=== PATIENT | female | born 1955 | race Caucasian/White ===

== ENCOUNTER 2019-06-22 14:15 | Emergency (ER) | payer MEDICAID ==
[2019-06-22] MEDS ORDERED: NORMAL SALINE 1000 ML 1,000 ML IV ONE (14:29)
--- NOTE | 2019-06-22 14:29 | ER Document Report ---
ED Medical Screen (RME) - General Stated Complaint: DIARRHEA TRAVEL OUTSIDE OF THE [place] IN LAST 30 DAYS: No - HPI Notes: 06/22/19 14:28 Patient is a 63-year-old female with stage IV breast cancer who finished her chemotherapy 10 days ago presents complaining of having diarrhea that started about the same time and has been present since. Patient describes the diarrhea as watery. She does feel weak. Denies drug allergies. No fever, chest pain, shortness of breath. No vomiting. I have treated and performed a rapid initial assessment of this patient. A comprehensive ED assessment and evaluation of the patient, analysis of test results and completion of medical decision making process will be conducted by additional ED providers. PHYSICAL EXAMINATION: GENERAL: Well-appearing, well-nourished and in no acute distress. A&Ox4. Answers questions appropriately.
[2019-06-22 15:50] LABS: ABSOLUTE LYMPHOCYTES (AUTO) 0.5 10^3/uL (0.5-4.7); ABSOLUTE MONOCYTES (AUTO) 0.7 10^3/uL (0.1-1.4); ABSOLUTE NEUT (AUTO) 2.9 10^3/uL (1.7-8.2); BASOPHILS % (AUTO) 0.1 % (0-2); EOSINOPHILS % (AUTO) 0.1 % (0-6); HEMATOCRIT 35.2 % (36.0-47.0); HEMOGLOBIN 11.9 g/dL (12.0-15.5); LYMPHOCYTES % (AUTO) 12.4 % (13-45); MEAN CORPUSCULAR HEMOGLOBIN 29.6 pg (27.0-33.4); MEAN CORPUSCULAR HGB CONC 33.9 g/dL (32.0-36.0); MEAN CORPUSCULAR VOLUME 87 fl (80-97); MONOCYTES % (AUTO) 17.1 % (3-13); PLATELET COUNT 209 10^3/uL (150-450); RED BLOOD COUNT 4.03 10^6/uL (3.72-5.28); RED CELL DISTRIBUTION WIDTH 16.2 % (11.5-14.0); SEGMENTED NEUTROPHILS % (AUTO) 70.3 % (42-78); TOTAL CELLS COUNTED % (AUTO) 100 %; WHITE BLOOD COUNT 4.1 10^3/uL (4.0-10.5)
[2019-06-22 16:04] LABS: ALBUMIN 2.7 g/dL (3.5-5.0); ALKALINE PHOSPHATASE 61 U/L (38-126); ANION GAP 7 (5-19); ASPARTATE AMINO TRANSFERASE 20 U/L (14-36); BILIRUBIN,TOTAL 0.8 mg/dL (0.2-1.3); BLOOD UREA NITROGEN 13 mg/dL (7-20); CALCIUM 8.4 mg/dL (8.4-10.2); CARBON DIOXIDE 34 mmol/L (22-30); CHLORIDE 87 mmol/L (98-107); GLUCOSE 91 mg/dL (75-110); TOTAL PROTEIN 4.9 g/dL (6.3-8.2)
[2019-06-22 16:13] LABS: POTASSIUM 2.4 mmol/L (3.6-5.0)
[2019-06-22] MEDS ORDERED: POTASSIUM CHLORIDE 10 MEQ TABLET.ER PO ONE ×2 (16:38→23:19)
[2019-06-22] MEDS ORDERED: POTASSI CL 20 MEQ/50 ML RIDER 20 MEQ/50 ML RTUPB IV ONE (16:38)
--- NOTE | 2019-06-22 18:44 | ER Document Report ---
ED General - General Chief Complaint: Diarrhea Stated Complaint: DIARRHEA Time Seen by Provider: 06/22/19 18:29 Primary Care Provider: FERNIE PITT DO [Primary Care Provider] - Follow up as needed Mode of Arrival: Stretcher Information source: Patient Notes: Jered JUNG Patient is a 63-year-old female with stage IV breast cancer who finished her chemotherapy 10 days ago presents complaining of having diarrhea that started about the same time and has been present since. Patient describes the diarrhea as watery. She does feel weak. Denies drug allergies. No fever, chest pain, shortness of breath. No vomiting. Patient sees Dr. Barry in [facility] as a oncologist. Patient called her neighbor because she felt poorly for the last several days. She has been taken Xeloda capectabine for her breast cancer and side effects include stomach i ssues. Patient is felt very weak for the last 2 to 3 days as well. She is only taken in one third of a bottle of her 8 ounces of water today. TRAVEL OUTSIDE OF THE [place] IN LAST 30 DAYS: No - HPI Onset: Just prior to arrival - Related Data Allergies/Adverse Reactions: No Known Allergies Allergy (Verified 06/22/19 14:35) Home Medications: Acetaminophen. Capecitabine. Carvedilol. Claritin. Diphenyhydramine. Gabapentin. Losartan. Prochlorperazine Past Medical History - General Information source: Patient - Social History Smoking Status: Never Smoker Cigarette use (# per day): No Chew tobacco use (# tins/day): No Smoking Education Provided: No Frequency of alcohol use: Occasional Drug Abuse: None Lives with: Alone Family History: Malignancy, Other - Status post bilateral mastectomy with edema of her right upper arm residual Patient has suicidal ideation: No Patient has homicidal ideation: No Review of Systems - Review of Systems Constitutional: See HPI, Malaise, Weakness, Weight loss, Recent illness EENT: See HPI, Other - Dry mouth and lips Cardiovascular: No symptoms reported Respiratory: No symptoms reported Gastrointestinal: See HPI, Diarrhea, Nausea, Poor appetite, Poor fluid intake Genitourinary: No symptoms reported Female Genitourinary: No symptoms reported Musculoskeletal: No symptoms reported Skin: No symptoms reported Hematologic/Lymphatic: No symptoms reported Neurological/Psychological: No symptoms reported Physical Exam - Vital signs Vitals: Temp Pulse Resp BP Pulse Ox 98.1 F 82 18 103/55 L 98 06/22/19 14:28 06/22/19 14:28 06/22/19 14:28 06/22/19 14:28 06/22/19 14:28 Interpretation: Hypotensive - General General appearance: Alert In distress: Mild - HEENT Head: Normocephalic Eyes: Normal Conjunctiva: Normal Cornea: Normal Extraocular movements intact: Yes Eyelashes: Normal Pupils: PERRL Mouth/Lips: Normal Mucous membranes: Dry Pharynx: Other - Dry oral mucous membranes and tongue and lips Neck: Normal - Respiratory Respiratory status: No respiratory distress Chest status: Nontender Breath sounds: Normal Chest palpation: Normal - Cardiovascular Rhythm: Regular Murmur: No Friction rub: No Megan's crunch: No - Abdominal Inspection: Normal Distension: No distension Bowel sounds: Hyperactive Tenderness: Nontender Organomegaly: No organomegaly - Back Back: Normal - Extremities General upper extremity: Edema - Right upper extremity only left upper extremity within normal limits General lower extremity: Normal inspection - Neurological Neuro grossly intact: Yes Cognition: Normal Orientation: AAOx4 [place] Coma Scale Eye Opening: Spontaneous Teresa Coma Scale Verbal: Oriented Speech: Normal Cranial nerves: Normal Motor strength normal: LUE, RUE, LLE, RLE - Psychological Associated symptoms: Normal affect - Skin Skin Temperature: Warm Skin Moisture: Dry Course - Vital Signs Vital signs: Temp Pulse Resp BP Pulse Ox 98.1 F 82 18 103/55 L 98 06/22/19 14:28 06/22/19 14:28 06/22/19 14:28 06/22/19 14:28 06/22/19 14:28 - Laboratory Result Diagrams: 06/22/19 15:19 06/22/19 15:19 Laboratory results interpreted by me: 06/22/19 06/22/19 15:19 15:19 Hgb 11.9 L Hct 35.2 L RDW 16.2 H Lymph % (Auto) 12.4 L Rooks % (Auto) 17.1 H Sodium 128.3 L Potassium 2.4 L* Chloride 87 L Carbon Dioxide 34 H Total Protein 4.9 L Albumin 2.7 L - Diagnostic Test Radiology reviewed: Reports reviewed - EKG Interpretation by Tx EKG shows normal: Sinus rhythm Rate: Normal [place]/QRS: RBBB Critical Care Note - Critical Care Note Total time excluding time spent on procedures (mins): 90 Comments: I discussed this case with Jenn Teresa at [phone] @ [phone] and she advised she will discuss this with Dr. Wilner Arce when he arrives Discharge - Discharge Clinical Impression: Dehydration Condition: Fair Disposition: ADMITTED INPATIENT Admitting Provider: Claude (Hospitalist) Unit Admitted: Medical Floor Referrals: FERNIE PITT DO [Primary Care Provider] - Follow up as needed
[2019-06-22 19:11] LABS: C DIFFICILE GDH NEGATIVE (NEGATIVE)
--- NOTE | 2019-06-22 20:07 | RADIOLOGY REPORT (SQ) ---
EXAM DESCRIPTION: KUB/ABDOMEN (SINGLE VIEW) COMPLETED DATE/TIME: 06/22/2019 7:18 pm REASON FOR STUDY: weakness diarrhea COMPARISON: None. NUMBER OF VIEWS: One view. TECHNIQUE: Supine radiographic image of the abdomen acquired. LIMITATIONS: None. FINDINGS: BOWEL GAS PATTERN: Scattered non-dilated small bowel loops. No obstructive pattern. CALCIFICATIONS: No suspicious calcifications. SOFT TISSUES: No gross mass or suggestion of organomegaly. HARDWARE: None in the abdomen.. BONES: No acute fracture. No worrisome bone lesions. OTHER: No other significant finding. IMPRESSION: NON-SPECIFIC BOWEL GAS PATTERN WITHOUT EVIDENCE FOR OBSTRUCTION. TECHNICAL DOCUMENTATION: JOB ID: [id number] [id number] 2010 [employer]- All Rights Reserved Reading location - IP/workstation name: [email or web address]
[2019-06-23] MEDS: POTASSI CL 20 MEQ/50 ML RIDER 20 MEQ/50 ML RTUPB IV SCH ×2 (00:03→02:28)
--- NOTE | 2019-06-23 01:10 | EKG REPORT ---
SEVERITY:- ABNORMAL ECG - SINUS RHYTHM RIGHT BUNDLE BRANCH BLOCK PROBABLE LEFT VENTRICULAR HYPERTROPHY : Confirmed by: Savanah Sullivan MD 23-Jun-2019 01:09:43
--- NOTE | 2019-06-23 03:47 | PDOC CONSULTATION ---
Consultation Consult Date: 06/23/19 Attending physician:: CATALINA CAPONE JR Provider Consulted: AMY TONEY Consult reason:: Hypokalemia History of Present Illness Admission Date/PCP: FERNIE PITT DO Patient complains of: Weakness History of Present Illness: PAVAN COLEMAN is a 63 year old female with a past medical history of stage IV breast cancer who finished chemotherapy 10 days ago with subsequent loose stools and diarrhea developing fatigue and weakness she denies fever nausea vomiting or abdominal pain. In the emergency department she is found to have a potassium of 2.4. Imaging is unremarkable. She receives 2 L of normal saline, 80 mEq of potassium IV and p.o. She tolerates p.o. diet and feels improved. Past Surgical History Past Surgical History: Reports: Mastectomy Social History Information Source: Patient, [facility], [facility] Records Lives with: Alone Smoking Status: Never Smoker Frequency of Alcohol Use: None Drugs: None - Advance Directive Resuscitation Status: Full Code Family History Family History: Malignancy, Other - Status post bilateral mastectomy with edema of her right upper arm residual Parental Family History Reviewed: Yes Children Family History Reviewed: Yes Sibling(s) Family History Reviewed.: Yes Medication/Allergy Home Medications: Carvedilol [Coreg 6.25 mg Tablet] 6.25 mg PO DAILY 06/22/19 Gabapentin [Neurontin 100 mg Capsule] 300 mg PO Q12 06/22/19 Losartan Potassium [Cozaar 25 mg Tablet] 25 mg PO DAILY 06/22/19 Allergies/Adverse Reactions: No Known Allergies Allergy (Verified 06/22/19 14:35) Review of Systems Constitutional: ABSENT: chills, fever(s), headache(s), weight gain, weight loss Eyes: ABSENT: visual disturbances Ears: ABSENT: hearing changes Cardiovascular: ABSENT: chest pain, dyspnea on exertion, edema, orthropnea, palpitations Respiratory: ABSENT: cough, hemoptysis Gastrointestinal: ABSENT: abdominal pain, constipation, diarrhea, hematemesis, hematochezia, nausea, vomiting Genitourinary: ABSENT: dysuria, hematuria Musculoskeletal: ABSENT: joint swelling Integumentary: ABSENT: rash, wounds Neurological: ABSENT: abnormal gait, abnormal speech, confusion, dizziness, focal weakness, syncope Psychiatric: ABSENT: anxiety, depression, homidical ideation, suicidal ideation Endocrine: ABSENT: cold intolerance, heat intolerance, polydipsia, polyuria Hematologic/Lymphatic: ABSENT: easy bleeding, easy bruising Physical Exam Vital Signs: Temp Pulse Resp BP Pulse Ox 97.8 F 82 23 H 108/62 99 06/23/19 01:02 06/22/19 14:28 06/23/19 01:01 06/23/19 01:00 06/23/19 01:01 Intake & Output 06/21/19 06/22/19 06/23/19 11:59 11:59 11:59 Intake Total 1100 Balance 1100 Weight 88.2 kg General appearance: PRESENT: no acute distress, well-developed, well-nourished Head exam: PRESENT: atraumatic, normocephalic Eye exam: PRESENT: conjunctiva pink, EOMI, PERRLA. ABSENT: scleral icterus Ear exam: PRESENT: normal external ear exam Mouth exam: PRESENT: moist, tongue midline Neck exam: ABSENT: carotid bruit, JVD, lymphadenopathy, thyromegaly Respiratory exam: PRESENT: clear to auscultation vin. ABSENT: rales, rhonchi, wheezes Cardiovascular exam: PRESENT: RRR. ABSENT: diastolic murmur, rubs, systolic murmur Pulses: PRESENT: normal dorsalis pedis pul Vascular exam: PRESENT: normal capillary refill GI/Abdominal exam: PRESENT: normal bowel sounds, soft. ABSENT: distended, guarding, mass, organolmegaly, rebound, tenderness Rectal exam: PRESENT: deferred Extremities exam: PRESENT: full ROM, +1 edema - Right upper extremity and bilateral lower extremity. ABSENT: calf tenderness, clubbing, pedal edema Neurological exam: PRESENT: alert, awake, oriented to person, oriented to place, oriented to time, oriented to situation, CN II-XII grossly intact. ABSENT: motor sensory deficit Psychiatric exam: PRESENT: appropriate affect, normal mood. ABSENT: homicidal ideation, suicidal ideation Skin exam: PRESENT: dry, intact, warm. ABSENT: cyanosis, rash Results Laboratory Results: 06/22/19 15:19 06/22/19 15:19 06/22/19 06/22/19 06/22/19 15:19 15:19 15:19 WBC 4.1 RBC 4.03 Hgb 11.9 L Hct 35.2 L MCV 87 MCH 29.6 MCHC 33.9 RDW 16.2 H Plt Count 209 Seg Neutrophils % 70.3 Sodium 128.3 L Potassium 2.4 L* Chloride 87 L Carbon Dioxide 34 H Anion Gap 7 BUN 13 Creatinine 0.62 Est GFR ( Amer) > 60 Glucose 91 Calcium 8.4 Magnesium 2.1 Total Bilirubin 0.8 AST 20 Alkaline Phosphatase 61 Total Protein 4.9 L Albumin 2.7 L Lipase 148.0 Stool for White Cells 06/22/19 22:07 WBC RBC Hgb Hct MCV MCH MCHC RDW Plt Count Seg Neutrophils % Sodium Potassium Chloride Carbon Dioxide Anion Gap BUN Creatinine Est GFR ( Amer) Glucose Calcium Magnesium Total Bilirubin AST Alkaline Phosphatase Total Protein Albumin Lipase Stool for White Cells MANY H Impressions: KUB X-Ray 06/22/19 19:01 IMPRESSION: NON-SPECIFIC BOWEL GAS PATTERN WITHOUT EVIDENCE FOR OBSTRUCTION. Assessment and Plan - Diagnosis (1) Hypokalemia Is this a current diagnosis for this admission?: Yes Plan: Secondary to side effect of chemotherapy, IV and p.o. repletion tolerated, discharge home advance diet as tolerated. Follow-up with oncologist in [facility] (2) Dehydration Is this a current diagnosis for this admission?: Yes Plan: Secondary to chemotherapy side effect, persistent diarrhea. Greatly improved following IV fluid challenge, tolerating p.o. She is discharged home with follow-up with oncology as scheduled. - Time Anticipated discharge: Home
[2019-06-23 08:41] LABS: ALBUMIN 2.2 g/dL (3.5-5.0); ALKALINE PHOSPHATASE 44 U/L (38-126); ANION GAP 7 (5-19); ASPARTATE AMINO TRANSFERASE 18 U/L (14-36); BILIRUBIN,DIRECT 0.3 mg/dL (0.0-0.4); BILIRUBIN,TOTAL 0.5 mg/dL (0.2-1.3); BLOOD UREA NITROGEN 11 mg/dL (7-20); CARBON DIOXIDE 27 mmol/L (22-30); CHLORIDE 98 mmol/L (98-107); GLUCOSE 89 mg/dL (75-110); TOTAL PROTEIN 4.3 g/dL (6.3-8.2)
[2019-06-23 08:50] LABS: POTASSIUM 3.6 mmol/L (3.6-5.0)
[2019-06-23 08:53] LABS: ABSOLUTE LYMPHOCYTES (AUTO) 0.5 10^3/uL (0.5-4.7); ABSOLUTE MONOCYTES (AUTO) 0.6 10^3/uL (0.1-1.4); ABSOLUTE NEUT (AUTO) 3.3 10^3/uL (1.7-8.2); BASOPHILS % (AUTO) 0.1 % (0-2); EOSINOPHILS % (AUTO) 0.3 % (0-6); HEMATOCRIT 29.6 % (36.0-47.0); HEMOGLOBIN 10.2 g/dL (12.0-15.5); LYMPHOCYTES % (AUTO) 11.3 % (13-45); MEAN CORPUSCULAR HEMOGLOBIN 30.1 pg (27.0-33.4); MEAN CORPUSCULAR HGB CONC 34.6 g/dL (32.0-36.0); MEAN CORPUSCULAR VOLUME 87 fl (80-97); MONOCYTES % (AUTO) 14.4 % (3-13); PLATELET COUNT 180 10^3/uL (150-450); RED CELL DISTRIBUTION WIDTH 16.2 % (11.5-14.0); SEGMENTED NEUTROPHILS % (AUTO) 73.9 % (42-78); TOTAL CELLS COUNTED % (AUTO) 100 %; WHITE BLOOD COUNT 4.4 10^3/uL (4.0-10.5)
[2019-06-23] MEDS ORDERED: VANCOMYCIN HCL INJ 1000 MG VIAL IV ONE (10:22)
[2019-06-23] MEDS ORDERED: PIPERACILLIN/TAZOBACTAM 3.375 GM VIAL IV ONE (10:22)
[2019-06-23 13:43] VITALS: BP 117/66
== END 2019-06-23 14:32 | disposition home or self-care (01) ==
LOC: ER 14:15
DX: E86.0 Dehydration (principal); E87.6 Hypokalemia; R19.7 Diarrhea, unspecified; C50.919 Malignant neoplasm of unspecified site of unspecified female breast; Z79.899 Other long term (current) drug therapy
CPT/HCPCS: 93005; 99291; 99292; 96365; 96366; 96367; 96368; 36415; 87045; 89055; 87205; 83690; 83735; 85025; 80053; 87324; 87449; 74018; 93010; J3480 ×2; J7030; J3370; J2543

== ENCOUNTER 2020-04-03 08:07 | Day surgery (SDC) | payer MEDICAID ==
[2020-03-28 14:31] LABS: HEMATOCRIT 36.4 % (36.0-47.0); HEMOGLOBIN 12.2 g/dL (12.0-15.5); MEAN CORPUSCULAR HEMOGLOBIN 29.7 pg (27.0-33.4); MEAN CORPUSCULAR HGB CONC 33.6 g/dL (32.0-36.0); MEAN CORPUSCULAR VOLUME 88 fl (80-97); PLATELET COUNT 420 10^3/uL (150-450); RED BLOOD COUNT 4.13 10^6/uL (3.72-5.28); RED CELL DISTRIBUTION WIDTH 13.4 % (11.5-14.0); WHITE BLOOD COUNT 8.4 10^3/uL (4.0-10.5)
[2020-03-28 14:37] LABS: APPEARANCE,URINE CLEAR; BILIRUBIN,URINE NEGATIVE (NEGATIVE); COLOR,URINE YELLOW; GLUCOSE, URINE NEGATIVE (NEGATIVE); KETONES,URINE TRACE mg/dL (NEGATIVE); LEUKOCYTE ESTERASE,URINE SMALL (NEGATIVE); NITRITE,URINE NEGATIVE (NEGATIVE); PROTEIN,URINE NEGATIVE (NEGATIVE); URINE SPECIFIC GRAVITY 1.023; UROBILINOGEN,URINE NEGATIVE mg/dL (<2.0)
[2020-03-28 15:00] LABS: ANION GAP 8 (5-19); BLOOD UREA NITROGEN 17 mg/dL (7-20); CALCIUM 10.2 mg/dL (8.4-10.2); CARBON DIOXIDE 31 mmol/L (22-30); CHLORIDE 94 mmol/L (98-107); GLUCOSE 86 mg/dL (75-110); POTASSIUM 4.5 mmol/L (3.6-5.0)
--- NOTE | 2020-03-28 16:59 | EKG REPORT ---
SEVERITY:- ABNORMAL ECG - SINUS RHYTHM LEFT ATRIAL ABNORMALITY INCOMPLETE RIGHT BUNDLE BRANCH BLOCK : Confirmed by: Flako Moon MD 28-Mar-2020 16:58:37
[~2020-04-03 08:07] MED LIST: FENTANYL CITRATE INJ/PF 100 MCG/2 ML AMPUL ONE; HYDROMORPHONE HCL INJ/PF 2 MG/ML AMPULE ONE; MIDAZOLAM 2 MG/2 ML INJ ONE; PROPOFOL INJ 200 MG/20 ML VIAL IV ONE; RINGERS SOLUTION,LACTATED 1,000 ML IV PRN; SUGAMMADEX SODIUM 200 MG/2 ML SDV IV ONE
[2020-04-03] MEDS ORDERED: LIDOCAINE 1%/EPINEPHRINE INJ 20 ML VIAL ONE (09:41)
[2020-04-03] MEDS ORDERED: CEFAZOLIN INJ 1 GM VIAL ONE (10:18)
[2020-04-03] MEDS ORDERED: FENTANYL CITRATE INJ/PF 100 MCG/2 ML AMPUL IV PRN ×3 (10:42)
[2020-04-03] MEDS ORDERED: OXYCODONE-ACETAMINOPHEN 5-325 MG TABLET PO PRN ×4 (10:42→11:39)
[2020-04-03] MEDS ORDERED: MORPHINE SULFATE 10 MG/ML INJ IV PRN ×2 (10:42→11:39)
[2020-04-03] MEDS ORDERED: MEPERIDINE HCL/PF INJ 25 MG/1 ML DISP.SYRIN IV PRN (10:42)
[2020-04-03] MEDS ORDERED: PROMETHAZINE HCL INJ 25 MG/1 ML VIAL IV PRN ×3 (10:42→11:39)
[2020-04-03] MEDS ORDERED: DIPHENHYDRAMINE HCL 50 MG/ML VIAL IV PRN (10:42)
[2020-04-03] MEDS ORDERED: ROCURONIUM BROMIDE INJ 50 MG/5 ML VIAL IV ONE (10:50)
[2020-04-03] MEDS ORDERED: GLYCOPYRROLATE 1 MG/5 ML VIAL ONE (10:50)
[2020-04-03] MEDS ORDERED: ONDANSETRON HCL INJ/PF 4 MG/2 ML SDV ONE (10:50)
[2020-04-03] MEDS ORDERED: SUCCINYLCHOLINE CHLORIDE INJ 200 MG/10 ML VIAL ONE (10:50)
[2020-04-03] MEDS ORDERED: NEOSTIGMINE METHYLSULFATE 10 MG/10 ML VIAL ONE (10:50)
[2020-04-03] MEDS ORDERED: DIPHENHYDRAMINE HCL 50 MG/ML VIAL ONE (10:50)
[2020-04-03] MEDS ORDERED: KETOROLAC TROMETHAMINE 60 MG/2 ML SDV ONE (10:50)
[2020-04-03] MEDS ORDERED: METOCLOPRAMIDE HCL INJ/PF 10 MG/2 ML SDV ONE (10:50)
[2020-04-03] MEDS ORDERED: DEXAMETHASONE SOD PHOSPHATE INJ 4 MG/1 ML VIAL ONE (10:50)
[2020-04-03] MEDS ORDERED: CEFAZOLIN INJ 1 GM VIAL IV ONE (11:15)
[2020-04-03] MEDS ORDERED: ESTROGENS,CONJUGATED 0.625 MG/1 GM 30 GM TUBE PV ONE (11:15)
[2020-04-03] MEDS ORDERED: SIMETHICONE 80 MG TAB.CHEW PO PRN (11:39)
[2020-04-03] MEDS ORDERED: ACETAMINOPHEN 325 MG TABLET PO PRN (11:39)
[2020-04-03] MEDS ORDERED: ACETAMINOPHEN 1,000 MG/100 ML RTUPB IV PRN (11:39)
[2020-04-03] MEDS ORDERED: RINGERS SOLUTION,LACTATED 1,000 ML IV PRN (11:39)
--- NOTE | 2020-04-03 11:52 | Operative Report ---
Operative Report DATE OF SURGERY: 04/03/20 PREOPERATIVE DIAGNOSIS: Posterior vaginal prolapse complete, partial anterior v aginal prolapse POSTOPERATIVE DIAGNOSIS: Same OPERATION: Anterior and posterior repair SURGEON: JACOB YU 1ST TOBACCO WEIGHER: KATARINA GAMBOA 2ND Marble Polisher Hand: GABBIE HARRIS ANESTHESIA: GA COMPLICATIONS: None ESTIMATED BLOOD LOSS: 100 cc INTRAOPERATIVE FINDINGS: Grade 3 posterior vaginal prolapse with vaginal mucosa completely extruded from the vagina at rest, grade 2 anterior vaginal prolapse, cervix flush with the vaginal mucosa PROCEDURE: Patient was taken the operating rating room prepared and draped in normal sterile fashion in a [facility] Catheter was placed to gravity and the exam revealed the above findings. Getting with the posterior repair the mucosa was grasped in the midline with 2 Allis clamps inferiorly and superiorly was injected with approximately 10 cc of lidocaine with epi in the midline. The mucosa was then scored in the midline with a 15 blade. The mucosa was then dissected away from the rectocele defect using blunt and sharp dissection with Metzenbaums. This was done bilaterally on both sides of the defect until a Ray-Amanda could be fit in both spaces in the vaginal mucosa that had been dissected away was approximately 3 cm in depth. Using the rectovaginal junction as a guide we then placed support sutures of 2-0 Vicryl. Approximately 10 of these were placed in interrupted fashion the full length of the defect. The defect was adequately tucked below the bridge sutures, the mucosa that was excess was trimmed away. The remaining vaginal mucosa was then reapproximated with a two 2-0 Vicryl runner. We then performed an anterior repair in a similar fashion being the anterior mucosa between 2 Allis clamps and the superior and inferior midline placement and injected lidocaine with epi approximately 5 cc into the vesicle vaginal junction. The mucosa was then scored with a 15 blade in a similar fashion. The mucosa was then dissected away from the vesicovaginal junction with sharp and blunt dissection using Metzenbaums. Once adequate dissection was felt to be had to bridge sutures of the 2-0 Vicryl were placed in the vesicular the cyst cystocele was adequately tucked below the bridge sutures. The excess mucosa was dissected from this repair and the mucosa that remained was closed with 2 0 Vicryl runner. The instruments were then removed and the vagina was packed with Kerlix with Premarin cream only and. Patient tolerated procedure well sponge lap and needle counts were correct x2 the patient was taken to recovery in stable condition.
[2020-04-03] MEDS: IBUPROFEN 800 MG TABLET PO SCH ×2 (13:36→17:28)
[2020-04-03] MEDS: KETOROLAC TROMETHAMINE INJ/PF 30 MG/1 ML SDV IV SCH ×2 (14:24→21:42)
[2020-04-03] MEDS: DOCUSATE SODIUM 100 MG CAPSULE PO SCH (18:03)
[2020-04-04] MEDS: IBUPROFEN 800 MG TABLET PO SCH ×2 (00:10→05:07)
[2020-04-04] MEDS: KETOROLAC TROMETHAMINE INJ/PF 30 MG/1 ML SDV IV SCH (05:08)
[2020-04-04 08:09] LABS: HEMATOCRIT 32.4 % (36.0-47.0); HEMOGLOBIN 10.9 g/dL (12.0-15.5); MEAN CORPUSCULAR HEMOGLOBIN 29.5 pg (27.0-33.4); MEAN CORPUSCULAR HGB CONC 33.8 g/dL (32.0-36.0); MEAN CORPUSCULAR VOLUME 87 fl (80-97); PLATELET COUNT 365 10^3/uL (150-450); RED BLOOD COUNT 3.71 10^6/uL (3.72-5.28); RED CELL DISTRIBUTION WIDTH 13.5 % (11.5-14.0); WHITE BLOOD COUNT 10.4 10^3/uL (4.0-10.5)
[2020-04-04] MEDS: DOCUSATE SODIUM 100 MG CAPSULE PO SCH (09:23)
--- NOTE | 2020-04-04 09:29 | PDOC DISCHARGE SUMMARY ---
Impression - Admit/DC Date/PCP Admission Date/Primary Care Provider: BRANT CALIX PA-C Discharge Date: 04/04/20 - Discharge Diagnosis (1) Vaginal prolapse Is this a current diagnosis for this admission?: Yes - Assessment Summary: pt underwent A&P repair and has had an unremarkable post operative course. she is feeling much better now. She is voiding without difficulty - Additional Information Resuscitation Status: Full Code Discharge Diet: As Tolerated Discharge Activity: No Driving, No Lifting Over 10 Pounds, Pelvic Rest, No tub bath, Walk Frequently Referrals: JACOB YU MD [ACTIVE STAFF] - 04/11/20 8:30 am (CALL THE OFFICE FOR QUESTIONS OR CONCERNS) BRANT CALIX PA-C [Primary Care Provider] - Prescriptions: Oxycodone HCl/Acetaminophen [Percocet 5-325 mg Tablet] 1 tab PO Q4HP PRN #20 tablet PRN Reason: Docusate Sodium [Colace 100 mg Capsule] 100 mg PO BID #60 capsule Ibuprofen [Motrin 800 mg Tablet] 800 mg PO Q8H #60 tablet Home Medications: Gabapentin [Neurontin 100 mg Capsule] 300 mg PO Q12 06/22/19 Omeprazole Magnesium [Prilosec Otc] 20 mg PO ASDIR PRN 04/01/20 Docusate Sodium [Colace 100 mg Capsule] 100 mg PO BID #60 capsule 04/04/20 Ibuprofen [Motrin 800 mg Tablet] 800 mg PO Q8H #60 tablet 04/04/20 Oxycodone HCl/Acetaminophen [Percocet 5-325 mg Tablet] 1 tab PO Q4HP PRN #20 tablet 04/04/20 History of Present Illiness History of Present Illness: PAVAN COLEMAN is a 64 year old female Physical Exam - Physical Exam Vital Signs: Temp Pulse Resp BP Pulse Ox 97.9 F 74 16 121/63 99 04/04/20 08:10 04/04/20 07:31 04/04/20 07:31 04/04/20 07:31 04/04/20 07:31 Intake & Output 04/03/20 04/04/20 04/05/20 06:59 06:59 06:59 Intake Total 1620 Output Total 650 Balance 970 Weight 84.9 kg Results Laboratory Results: WBC 10.4 10^3/uL (4.0-10.5) 04/04/20 07:40 RBC 3.71 10^6/uL (3.72-5.28) L 04/04/20 07:40 Hgb 10.9 g/dL (12.0-15.5) L 04/04/20 07:40 Hct 32.4 % (36.0-47.0) L 04/04/20 07:40 MCV 87 fl (80-97) 04/04/20 07:40 MCH 29.5 pg (27.0-33.4) 04/04/20 07:40 MCHC 33.8 g/dL (32.0-36.0) 04/04/20 07:40 RDW 13.5 % (11.5-14.0) 04/04/20 07:40 Plt Count 365 10^3/uL (150-450) 04/04/20 07:40 Sodium 133.2 mmol/L (137-145) L 03/28/20 13:02 Potassium 4.5 mmol/L (3.6-5.0) 03/28/20 13:02 Chloride 94 mmol/L (98-107) L 03/28/20 13:02 Carbon Dioxide 31 mmol/L (22-30) H 03/28/20 13:02 Anion Gap 8 (5-19) 03/28/20 13:02 BUN 17 mg/dL (7-20) 03/28/20 13:02 Creatinine 0.51 mg/dL (0.52-1.25) L 03/28/20 13:02 Est GFR ( Amer) > 60 (>60) 03/28/20 13:02 Est GFR (MDRD) Non-Af > 60 (>60) 03/28/20 13:02 Glucose 86 mg/dL (75-110) 03/28/20 13:02 Calcium 10.2 mg/dL (8.4-10.2) 03/28/20 13:02 Urine Color YELLOW 03/28/20 13:09 Urine Appearance CLEAR 03/28/20 13:09 Urine pH 5.0 (5.0-9.0) 03/28/20 13:09 Ur Specific [place] 1.023 03/28/20 13:09 Urine Protein NEGATIVE mg/dL (NEGATIVE) 03/28/20 13:09 Urine Glucose (UA) NEGATIVE mg/dL (NEGATIVE) 03/28/20 13:09 Urine Ketones TRACE mg/dL (NEGATIVE) H 03/28/20 13:09 Urine Blood NEGATIVE (NEGATIVE) 03/28/20 13:09 Urine Nitrite NEGATIVE (NEGATIVE) 03/28/20 13:09 Urine Bilirubin NEGATIVE (NEGATIVE) 03/28/20 13:09 Urine Urobilinogen NEGATIVE mg/dL (<2.0) 03/28/20 13:09 Ur Leukocyte Esterase SMALL (NEGATIVE) H 03/28/20 13:09 Urine WBC (Auto) 2 /HPF 03/28/20 13:09 Urine RBC (Auto) 1 /HPF 03/28/20 13:09 Squamous Epi Cells Auto 1 /HPF 03/28/20 13:09 Urine Mucus (Auto) RARE /LPF 03/28/20 13:09 Urine Ascorbic Acid NEGATIVE (NEGATIVE) 03/28/20 13:09 COVID-19 Source See comment 03/28/20 12:55 COVID-19 (DUSTIN) Not Detected (Not Detect) 03/28/20 12:55 Blood Type A NEGATIVE 04/03/20 09:07 Antibody Screen NEGATIVE 04/03/20 09:07 Stroke Is this a Stroke Patient?: No Acute Heart Failure Is this a Heart Failure Patient?: No
[2020-04-04 10:35] VITALS: BP 120/60
== END 2020-04-04 11:03 | disposition home or self-care (01) ==
LOC: OROUT 08:07 → 2N 12:25 → OROUT 04-04 11:03
PROVIDERS: ATTEND Obstetrics & Gynecology
DX: N81.10 Cystocele, unspecified (principal); N81.6 Rectocele; Z03.818 Encounter for observation for suspected exposure to other biological agents ruled out; Z79.899 Other long term (current) drug therapy; K21.9 Gastro-esophageal reflux disease without esophagitis
CPT/HCPCS: 93005; 86900; 86901; 36415 ×2; 86850; 85027 ×2; 87635; 80048; 81001; 94799; 93010; 00942; 57260; C1758; J2250; J0690; J3490 ×4; J1100; J1200; J1885 ×3; J3010; J2765; J2710; J0330; J2405; J7120 ×2; J2704; C9803; 942; J1170

== ENCOUNTER 2020-05-08 13:04 | Day surgery (SDC) | payer MEDICAID ==
[2020-05-08 14:01] LABS: HEMATOCRIT 29.7 % (36.0-47.0); HEMOGLOBIN 10.4 g/dL (12.0-15.5); MEAN CORPUSCULAR HEMOGLOBIN 28.3 pg (27.0-33.4); MEAN CORPUSCULAR HGB CONC 35.1 g/dL (32.0-36.0); MEAN CORPUSCULAR VOLUME 81 fl (80-97); PLATELET COUNT 552 10^3/uL (150-450); RED BLOOD COUNT 3.68 10^6/uL (3.72-5.28)
[2020-05-08 14:09] LABS: INTERNATIONAL RATION (INR) 1.07; PROTHROMBIN TIME 14.2 SEC (11.4-15.4)
[2020-05-08 14:10] LABS: PARTIAL THROMBOPLASTIN TIME 36.5 SEC (23.5-35.8)
[2020-05-08 14:20] LABS: BLOOD UREA NITROGEN 9 mg/dL (7-20)
--- NOTE | 2020-05-08 15:00 | RADIOLOGY REPORT (SQ) ---
EXAM DESCRIPTION: CT CHEST WITH IMAGES COMPLETED DATE/TIME: 05/08/2020 2:34 pm REASON FOR STUDY: (J90) RIGHT PLEURAL EFFUSION J90 PLEURAL EFFUSION, NOT ELSEWHERE CLASSIFIED COMPARISON: None. TECHNIQUE: CT scan of the chest performed using helical scanning technique with dynamic intravenous contrast injection. Images reviewed with lung, soft tissue and bone windows. Reconstructed coronal and sagittal MPR and MIP images reviewed. All images stored on PACS. All CT scanners at this facility use dose modulation, iterative reconstruction, and/or weight based d osing when appropriate to reduce radiation dose to as low as reasonably achievable (ALARA). [facility]: Dose Right [facility]: CareDose [facility]: Dose Right [facility]: Teradose 4D [facility]: [employer] 360 [employer] CONTRAST TYPE AND DOSE: contrast/concentration: Isovue 350.00 mmol/ml; Total Contrast Delivered: 80. 0 ml; Total Saline Delivered: 55.0 ml RENAL FUNCTION: BUN 9 creatinine 0.4 RADIATION DOSE: CT Rad equipment meets quality standard of care and radiation dose reduction techniq ues were employed. CTDIvol: 9.6 mGy. DLP: 448 mGy-cm. . LIMITATIONS: None. FINDINGS: LUNGS AND PLEURA: There is a very large right pleural effusion with only a small amount of aerated lung seen anteriorly. Atelectatic lung is seen medially. HILAR AND MEDIASTINAL STRUCTURES: No identified masses or abnormal nodes. HEART AND VASCULAR STRUCTURES: No aneurysm or dissection. No central pulmonary emboli. No pericardi al effusion. HARDWARE: None in the chest. UPPER ABDOMEN: There are numerous small heterogeneous low-density lesions in the liver. THYROID AND OTHER SOFT TISSUES: No masses. No adenopathy. BONES: No significant finding. OTHER: No other significant finding. IMPRESSION: 1. Very large right pleural effusion as described. 2. Metastatic disease in the liver. TECHNICAL DOCUMENTATION: JOB ID: [id number] Quality ID # [id number]: Final reports with documentation of one or more dose reduction techniques (e.g., Au tomated exposure control, adjustment of the mA and/or kV according to patient size, use of iterative reconstruction technique) 2010 [employer]- All Rights Reserved Reading location - IP/workstation name: [email or web address]
--- NOTE | 2020-05-08 15:42 | RADIOLOGY REPORT (SQ) ---
EXAM DESCRIPTION: CHEST SINGLE VIEW IMAGES COMPLETED DATE/TIME: 05/08/2020 3:34 pm REASON FOR STUDY: status post right thoracentesis COMPARISON: None. EXAM PARAMETERS: NUMBER OF VIEWS: One view. TECHNIQUE: Single frontal radiographic view of the chest acquired. RADIATION DOSE: NA LIMITATIONS: None. FINDINGS: LUNGS AND PLEURA: Large residual right pleural effusion. No pneumothorax. MEDIASTINUM AND HILAR STRUCTURES: No masses. Contour normal. HEART AND VASCULAR STRUCTURES: Heart normal in size. Normal vasculature. BONES: No acute findings. HARDWARE: None in the chest. OTHER: No other significant finding. IMPRESSION: Large residual right pleural effusion. No pneumothorax. TECHNICAL DOCUMENTATION: JOB ID: [id number] 2010 [employer]- All Rights Reserved Reading location - IP/workstation name: [email or web address]
--- NOTE | 2020-05-08 16:01 | RADIOLOGY REPORT (SQ) ---
EXAM DESCRIPTION: CT THORACENTESIS WITH IMAGING IMAGES COMPLETED DATE/TIME: 05/08/2020 3:39 pm REASON FOR STUDY: (J90) RIGHT PLEURAL EFFUSION J90 PLEURAL EFFUSION, NOT ELSEWHERE CLASSIFIED COMPARISON: None. MACHINE II TRIMMER: Ralf SUPERVISING PHYSICIAN: Anshu FLUOROSCOPY TIME: CT Fluoroscopy: None 0CT fluoroscopic images were obtained and saved to PACS. RADIATION DOSE: CT Rad equipment meets quality standard of care and radiation dose reduction techniq ues were employed. CTDIvol: 16.0 mGy. DLP: 426 mGy-cm. mGy. LIMITATIONS: None. PROCEDURE: Procedure, risks, benefit, and alternative explained to patient who then gave written con sent. The right chest wall was marked using CT guidance; "time-out" called; correct marking verified . Chest prepped and draped using sterile technique. Local anesthesia achieved using 1% lidocaine i njection. Hypodermic needle introduced into the right pleural space. Fluid aspirated. Needle rem raissa and entry site covered with sterile bandage. No immediate complications noted. Images acquired during the procedure were stored on PACS. All CT scanners at this facility use dose modulation, iterative reconstruction, and/or weight based d osing when appropriate to reduce radiation dose to as low as reasonably achievable (ALARA). [facility]: Dose Right [facility]: CareDose [facility]: Dose Right [facility]: Teradose 4D [facility]: [employer] FINDINGS: ENTRY SITE: Right FLUID VOLUME: 1500 cc FLUID ANALYSIS: Clear straw-colored OTHER: Fluid sent to lab for testing. IMPRESSION: SUCCESSFUL CT GUIDED rightTHORACENTESIS. COMMENT: Patient medication list reviewed: Yes- PQRS [id number]:Eligible professional attests to document ing in the medical record they obtained, updated, or reviewed the patient's current medications. Quality ID 145: Final reports for procedures using fluoroscopy that document radiation exposure betzy yue, or exposure time and number of fluorographic images (if radiation exposure indices are not avail able) TECHNICAL DOCUMENTATION: JOB ID: [id number] Quality ID # [id number]: Final reports with documentation of one or more dose reduction techniques (e.g., Au tomated exposure control, adjustment of the mA and/or kV according to patient size, use of iterative reconstruction technique) 2010 [employer]- All Rights Reserved Reading location - IP/workstation name: [email or web address]
[2020-05-08 17:41] VITALS: BP 138/54
--- NOTE | 2020-05-08 18:44 | RADIOLOGY REPORT (SQ) ---
EXAM DESCRIPTION: CHEST SINGLE VIEW IMAGES COMPLETED DATE/TIME: 05/08/2020 5:44 pm REASON FOR STUDY: 2 hour post right thoracentesis COMPARISON: None. EXAM PARAMETERS: NUMBER OF VIEWS: One view. TECHNIQUE: Single frontal radiographic view of the chest acquired. RADIATION DOSE: NA LIMITATIONS: None. FINDINGS: LUNGS AND PLEURA: Large residual pleural effusion. No pneumothorax. MEDIASTINUM AND HILAR STRUCTURES: No masses. Contour normal. HEART AND VASCULAR STRUCTURES: Heart normal in size. Normal vasculature. BONES: No acute findings. HARDWARE: None in the chest. OTHER: No other significant finding. IMPRESSION: No pneumothorax. Large residual pleural effusion. COMMENT: Findings were discussed with Adore Ghosh at 1837 hours on this date. TECHNICAL DOCUMENTATION: JOB ID: [id number] 2010 [employer]- All Rights Reserved Reading location - IP/workstation name: [email or web address]
== END 2020-05-08 19:10 | disposition home or self-care (01) ==
LOC: RAD 13:04 → EDSTATUS 14:00 → RAD 19:10
PROVIDERS: ATTEND Nurse Practitioner Family
DX: J90 Pleural effusion, not elsewhere classified (principal)
CPT/HCPCS: 32555; 36415; 71045; 71260; 82565; 84520; 85027; 85610; 85730; 87070; 87075; 87205